=== PATIENT | male | born 1995 | race Caucasian/White ===

== ENCOUNTER 2025-05-10 20:00 | Emergency (ER) | payer OTHER, SELFPAY ==
[2025-05-10 20:04] VITALS: BP 161/102
[2025-05-10 21:39] VITALS: BMI 31.2
[2025-05-10 21:42] VITALS: BP 138/94
[2025-05-11] MEDS: KEFLEX 500 MG PO (00:11)
[2025-05-11] MEDS: ADACEL 0.5 ML IM (00:13)
--- NOTE | 2025-05-11 00:15 | ED.GENMED ---
History of Present Illness
General
Chief Complaint: Skin Surface Trauma
Source: patient and family
Exam Limitations: none
Time Seen by Provider: 05/10/25 23:07
Nursing documentation reviewed up to this point in time: agreed with
History of Present Illness
History of Present Illness:
29-year-old male presenting to the emergency department today with concerns of right-sided barrientos laceration that occurred while playing softball prior to arrival. He claims that his cleat hit him in the barrientos during a slide. Denies additional
concerns unsure when his last tetanus shot was.
Review of Systems
Review of Systems
Allergies reviewed?: Yes
All Other Systems: ROS reviewed and negative except as documented in HPI and ROS
Phy Exam
Physical Exam
Physical Exam:
GENERAL: Alert , in no apparent distress
EYE: pupils equal and reactive
NECK: Supple, no significant adenopathy.
ENT: o/p clr, mmm.
CARDIAC: Regular rate and rhythm .
LUNGS: Clear breath sounds bilaterally, no acute respiratory distress, no wheezes/rales/rhonchi
ABDOMEN: Soft, without focal tenderness, no r/g, no cvat
NEUROLOGICAL: Alert and oriented, no focal neuro deficits
SKIN: 2.5 cm laceration subcutaneous in depth L shaped to the right mid anterior barrientos small skin avulsion just below that. Warm and dry, skin intact.
MUSCULOSKELETAL: No edema, well perfused.
PSYCH: Normal and appropriate interaction.
Course
Orders/Labs/Results
Orders:
Orders
05/10/25 23:56
Cephalexin Monohydrate [Keflex] 500 mg PO NOW STA
Tetanus/Diphth/Acelpertussis [Adacel] 0.5 ml IM .ONCE ONE
Vital Signs
Initial and Last Documented VS:
Initial Vital Signs
Temp Pulse Resp BP Pulse Ox
99.1 F 116 16 161/102 96
05/10/25 20:04 05/10/25 20:04 05/10/25 20:04 05/10/25 20:04 05/10/25 20:04
Last Documented Vital Signs
Temp Pulse Resp BP Pulse Ox
99.1 F 88 18 138/94 98
05/10/25 20:04 05/10/25 21:42 05/10/25 21:42 05/10/25 21:42 05/11/25 00:16
Procedures
Laceration Closure
Right Anterior Distal Leg:
Status of Wound: clean
Size of Wound in cm: 2.5
Description of Wound Edges: sharp
Preparation: cleaned with soap & water
Anesthesia: 1% Lidocaine with epi
Revision/Debridement: routine- no revision
Wound exploration: explored to base- no FB
Type of Closure: single layer closure and interrupted sutures
Skin Closure Material: 3-0 nylon
Number of sutures: 5
MDM/Problems Addressed
MDM/Problems Addressed:
29-year-old male presenting to the emergency department today with concerns of a laceration of his right barrientos from a cleat prior to arrival. This was cleaned thoroughly he was started on antibiotic considering the area was generally dirty. He was
given an updated tetanus shot. 5 stitches were placed. He was advised for follow-up in 14 days for removal. Otherwise return precautions given.
*Pulse Oximetry
SaO2: 98
Oxygen Mode of Delivery: Room air
Patient hypoxic: no (98)
*Critical Care Note
Total Time (30-74mins, 75-104mins- exclusive of procedures): Not Applicable
ED Attending Note
-
Portions of this chart may have been created with voice recognition software.� Occasional wrong word or��sound alike� substitutions may have occurred due to the inherent limitations of voice recognition software.
Discharge Plan
Departure
Patient Disposition: Home (Routine Discharge)
Date of Disposition: 05/11/25
Time of Disposition: 00:16
Patient with high blood pressure during this ER visit?: No
Condition: Good
Covid-19: Not Applicable
Discharge Problem:
Laceration of leg
Instructions: Laceration Repair With Stitches (DC)
Prescriptions:
New
cephalexin 500 mg capsule
500 mg PO TID 3 Days Qty: 9 0RF
Referrals:
Felix Valdes CRNP [Family Provider, Internal Medicine]
Activity Restrictions/Additional Instructions:
You came to the emergency department today with concerns of a laceration to your right barrientos. This was closed with 5 stitches. Please keep the area clean covered and follow-up in 12 to 14 days for suture removal. Return for any worsening, new or
concerning symptoms. Please also take the prophylactic antibiotics.
Interventions
Interventions:
*Risk Screen - Suicide Last Done: 05/10/25 21:40
*General Assessment Last Done: 05/10/25 21:40
*Neglect/Abuse Screening Last Done: 05/10/25 21:40
*ED- Fall Risk Assessment Last Done: 05/10/25 21:40
*ED COVID-19 Vaccine History Last Done: 05/10/25 21:40
*Nursing Disposition Last Done: 05/11/25 00:20
ED-Skin Assessment Last Done: 05/10/25 21:45
Discharge Date and Time
Discharge Date/Time: 05/11/25 00:21
Print Language: AMHARIC
== END 2025-05-11 00:21 | disposition home or self-care (01) ==
LOC: EMR 20:00
PROVIDERS: EMERGENCY PHYSICIAN Emergency Medicine; FAMILY PHYSICIAN Nurse Practitioner Adult Health
DX: S81.811A Laceration without foreign body, right lower leg, initial encounter (principal); W45.8XXA Other foreign body or object entering through skin, initial encounter; Y93.64 Activity, baseball; Z23 Encounter for immunization
CPT/HCPCS: 90471; 12001; 99283; 90715